=== PATIENT | female | born 1970 | race Caucasian/White ===

== ENCOUNTER → 2022-11-24 11:23 | Outpatient (BNVA) | payer OTHER, SELFPAY | PROVIDERS: PCP Nurse Practitioner Family; Visit Provider Nurse Practitioner Family | DX: E03.9 Hypothyroidism, unspecified | CPT/HCPCS: 80053; 80061; 84443; 85025 ==

== ENCOUNTER 2022-12-08 06:05 | Outpatient (CLI) | payer OTHER, SELFPAY ==
--- NOTE | 2022-12-08 07:30 | US_ITS ---
WS: [id number] THYROID ULTRASOUND HISTORY: E89.0 - Postprocedural hypothyroidism COMPARISON: None available. Right lobe: 1.9 cm x 1.9 cm x 4.5 cm (w x ap x l). Volume: 8.7 cm3. Normal sized gland. Normal vascularity throughout the gland. Nodule 1: 1.6 x 0.6 x 1.2 cm, mid gland towards the isthmus. Ovoid shape with a few echogenic foci. M ixed echogenicity, smooth margins and microcalcifications. Nodule 2: 0.8 x 0.7 x 1.2 cm, mid central gland. Round shape, mixed echogenicity, solid, smooth juanis ns and echogenic foci. Left lobe: Prior LEFT thyroidectomy. Isthmus: 0.2 cm. IMPRESSION: 1. Status post LEFT thyroidectomy. No recurrent mass at the thyroid bed and no abnormal cervical rafiq n lymph nodes. 2. RIGHT thyroid nodules x2. Each of these nodules designated TI-RADS 5. Consider follow-up ultrasoun d-guided fine-needle aspiration.
== END 2022-12-08 06:06 | disposition home or self-care (01) ==
PROVIDERS: PCP Nurse Practitioner Family; Visit Provider Nurse Practitioner Family
DX: E89.0 Postprocedural hypothyroidism (principal); E04.2 Nontoxic multinodular goiter
CPT/HCPCS: 76536

== ENCOUNTER 2023-01-11 08:08 | Outpatient (CLI) | payer OTHER, SELFPAY ==
--- NOTE | 2023-01-11 09:15 | US_ITS ---
WS: [id number] ULTRASOUND-GUIDED RIGHT THYROID NODULE FNA x 2 HISTORY: E04.1 - Nontoxic single thyroid nodule, 2 suspicious nodules in the RIGHT thyroid. Procedure, risks, and complications were explained to the patient. Timeout performed. Consent has bee n obtained. Masses within the RIGHT thyroid are identified. Initial mass for biopsy is in the mid RIGHT isthmus a nd the additional mass is in the inferior pole. The skin is cleansed with ChloraPrep and anesthetized with 1% buffered lidocaine. FNA performed with 25 gauge needles. certified hyperbaric technologist is present to fix slides. IMPRESSION: Uncomplicated FNA of a 2 RIGHT thyroid nodules. Final pathology results pending.
== END 2023-01-11 08:09 | disposition home or self-care (01) ==
LOC: RAD 08:09
PROVIDERS: PCP Nurse Practitioner Family; Visit Provider Nurse Practitioner Family
DX: E04.2 Nontoxic multinodular goiter (principal)
CPT/HCPCS: 10005; 88173

== ENCOUNTER → 2023-01-25 11:02 | Outpatient (BNVA) | payer OTHER, SELFPAY | PROVIDERS: PCP Nurse Practitioner Family; Visit Provider Nurse Practitioner Family | DX: R07.9 Chest pain, unspecified (principal) | CPT/HCPCS: 80053; 83735; 84443; 85025; 85379 ==

== ENCOUNTER → 2023-01-29 10:18 | Outpatient (BNVA) | payer OTHER, SELFPAY | PROVIDERS: PCP Nurse Practitioner Family; Visit Provider Nurse Practitioner Family | DX: M25.562 Pain in left knee (principal); M25.462 Effusion, left knee; M17.12 Unilateral primary osteoarthritis, left knee | CPT/HCPCS: 73562 ==

== ENCOUNTER → 2023-02-07 13:34 | Outpatient (BNVA) | payer OTHER, SELFPAY | PROVIDERS: PCP Nurse Practitioner Family; Referring Provider Nurse Practitioner Family; Visit Provider Nurse Practitioner | DX: M17.12 Unilateral primary osteoarthritis, left knee; M25.362 Other instability, left knee | CPT/HCPCS: 73560; 73565 ==

== ENCOUNTER 2023-02-07 15:31 | Outpatient (CLI) | payer OTHER, SELFPAY | END 2023-02-07 15:32 | disposition home or self-care (01) | LOC: SPT 15:32 | PROVIDERS: PCP Nurse Practitioner Family; Visit Provider Nurse Practitioner | DX: Z46.89 Encounter for fitting and adjustment of other specified devices (principal); M25.562 Pain in left knee | CPT/HCPCS: 97760; L1812 ==

== ENCOUNTER 2023-02-14 06:00 | Outpatient (RCR) | payer OTHER, SELFPAY | END 2023-02-22 23:59 | disposition home or self-care (01) | LOC: TPT 06:00 | PROVIDERS: PCP Nurse Practitioner Family; Visit Provider Nurse Practitioner | DX: M25.562 Pain in left knee (principal) | CPT/HCPCS: 97110; 97163 ==

== ENCOUNTER → 2023-02-21 14:18 | Outpatient (BNVA) | payer OTHER, SELFPAY | PROVIDERS: PCP Nurse Practitioner Family; Referring Provider Nurse Practitioner Family; Visit Provider Internal Medicine Cardiovascular Disease | DX: R07.9 Chest pain, unspecified (principal); R06.09 Other forms of dyspnea; R00.1 Bradycardia, unspecified | CPT/HCPCS: 93005 ==

== ENCOUNTER 2023-02-23 06:00 | Outpatient (RCR) | payer OTHER, SELFPAY | END 2023-03-25 23:59 | disposition home or self-care (01) | LOC: TPT 06:00 | PROVIDERS: PCP Nurse Practitioner Family; Visit Provider Nurse Practitioner | DX: M25.562 Pain in left knee (principal) | CPT/HCPCS: 97110; 97140; 97530 ==

== ENCOUNTER 2023-02-23 06:32 | Outpatient (CLI) | payer OTHER, SELFPAY ==
--- NOTE | 2023-02-23 07:00 | USCV_ITS ---
Carly Milan Age: 52 Gender: F : 1970 Exam Date: 02/23/2023 06:44 Ordering Phys: Kalen Khan MD ([email or web address]) Technologist: SIRIA Exam Location: [facility] [place] Indication: CHEST PAIN BP: 150 / 113 HR: 60 Rhythm: Sinus Technical Quality: Adequate MEASUREMENTS (Male / Female) Normal Values 2D ECHO LVOT Diameter 2.0 cm LV Ejection Fraction MOD 2C 73.4 % LV Ejection Fraction 2C AL 76.9 % LA Diameter 3.3 cm LA Width 4.3 cm LA Height 4.1 cm RA Width 3.3 cm RA Height 3.9 cm Aorta at Sinotubular Diameter 2.4 cm IVC Diameter 1.8 cm M-MODE Aortic Annulus Diameter 2.4 cm LA Ao Ratio MM 1.2 MV E Point Septal Separation 0.4 cm DOPPLER AV Peak Velocity 121.0 cm/s LVOT Peak Velocity 109.0 cm/s AV Area Cont Eq vti 2.8 cm squared AV Area Cont Eq pk 2.9 cm squared MV Peak Velocity 94.0 cm/s MV Area PHT 3.9 cm squared Mitral E to A Ratio 0.9 MV E' Velocity 46.0 cm/s Mitral E to MV E' Ratio 8.7 Mitral E to LV E' Lateral Ratio 7.5 Mitral E to LV E' Septal Ratio 10.2 TR Peak Velocity 125.7 cm/s TR Peak Gradient 6.3 mmHg TR Mean Velocity 106.2 cm/s TR Mean Gradient 4.7 mmHg TR Velocity Time Integral 37.2 cm TV Peak E Velocity 56.0 cm/s Right Atrial Pressure 3.0 mmHg Pulmonary Artery Systolic Pressu 9.3 mmHg PV Peak Velocity 132.0 cm/s RV Acceleration Time 0.2 s RV Ejection Time 0.3 s RV AcT/ET 0.5 FINDINGS Left Ventricle Normal left ventricular size and systolic function, EF 71 %. No regional wall motion abnormalities. Grade I/IV diastolic dysfunction (abnormal relaxation filling pattern), normal to mildly elevated filling pressures. Right Ventricle The right ventricle is normal in size and function. Right Atrium The right atrium is normal in size. Left Atrium The left atrium is normal in size. Mitral Valve Structurally normal mitral valve. Trace mitral valve regurgitation. Aortic Valve No gross abnormalities noted Tricuspid Valve No gross abnormalities noted Pulmonic Valve No gross abnormalities noted Pericardium Normal pericardium without effusion. Aorta Normal ascending aorta dimension. IVC Normal inferior vena cava. CONCLUSIONS Normal left ventricular size and systolic function, EF 71 %. No regional wall motion abnormalities. Grade I/IV diastolic dysfunction (abnormal relaxation filling pattern), normal to mildly elevated filling pressures. Structurally normal mitral valve. Trace mitral valve regurgitation. Normal cardiac chamber sizes. There is no pericardial effusion. There are no intracardiac masses. No similar previous studies are available for comparison Dr Kalen Khan MD [facility] (Electronically Signed) Final Date: 24 February 2023 12:02 S
== END 2023-02-23 06:33 | disposition home or self-care (01) ==
LOC: RAD 06:32
PROVIDERS: PCP Nurse Practitioner Family; Visit Provider Internal Medicine Cardiovascular Disease
DX: R06.09 Other forms of dyspnea (principal); R07.9 Chest pain, unspecified; I34.0 Nonrheumatic mitral (valve) insufficiency
CPT/HCPCS: 93306

== ENCOUNTER 2023-02-28 06:22 | Outpatient (CLI) | payer OTHER, SELFPAY ==
[2023-02-28 06:39] VITALS: BMI 45.1
--- NOTE | 2023-02-28 06:41 | NMCV_ITS ---
NM agnieszka perf SPECT r/s* [id number] Carly Milan Age: 52 Gender: F : 1970 Exam Date: 02/28/2023 07:22 Ordering Phys: Kalen Khan MD ([email or web address]) Technologist: ZAKIYA Lamas Exam Location: [facility] Indications: CORONARY ANGIOPLASTY STATUS STRESS TEST Please see separate stress test report in [facility] for full findings IMAGE PROTOCOL Rest/Stress 1 Lexiscan Day Radiopharmaceutical Dose (mCi) Administration Site Administered by Rest: Tc-99m 10.7 IV ZAKIYA Stoll Sestamibi Stress:Tc-99m 32.7 IV ZAKIYA Stoll Sestamibi Rest: 28-Feb-2023 60 Discovery 630 Stress: 28-Feb-2023 30 Discovery 630 0.4mg Lexiscan. Images obtained in supine and prone position. SPECT RESULTS Technical Quality: Excellent Raw Data Analysis: Normal Image Corrections: No attenuation or motion correction applied Summed Stress Score: 0 Summed Rest Score: 0 Summed Difference Score: 0 PERFUSION FINDINGS Uniform myocardial tracer uptake significant perfusion abnormalities . FUNCTIONAL RESULTS (calculated via Gated SPECT) Stress Image LV EF (%): 66 Stress EDV (mL):116 TID: 1.22 Stress ESV (mL):39 FUNCTIONAL FINDINGS: Segmental wall motion analysis revealing no gross wall motion abnormalities Elevated transient ischemic dilatation ratio 1.22 IMPRESSIONS 1. Myocardial perfusion imaging revealing uniform tracer uptake with no significant perfusion normalities. 2. Normal LV ejection fraction of 66%. 3. LV wall motion analysis revealing no gross wall motion abnormalities. 4. Normal LV volume The elevated transient limited ischemic dilatation ratio may suggest endocardial ischemia. However in the absence of any other abnormal objective findings, the positive predictive value of this finding is very limited. No similar previous studies are available for comparison Dr Kalen Khan MD [facility] (Electronically Signed) Final Date: 28 February 2023 18:11 S
--- NOTE | 2023-02-28 06:41 | ECG_ITS ---
[facility] Test Date: 2023-02-28 Pat Name: Carly Milan Department: Room: Gender: Female Health And Safety Advisor: Gustavonaomi Buckley : 1970 Requested By: Kalen Khan Order Number: [id number] Citlalli MD: Kalen Khan M.D. Interpretive Statements NAME OF STUDY: LEXISCAN SESTAMIBI STRESS TEST INDICATION: Chest Pain PROCEDURE: At the baseline, the EKG revealed sinus bradycardia. Poor R wave progression. Normal ST Ts.. The baseline heart was 54 bpm with a blood pressue of 148/104 mm of Hg Lexiscan was infused over a period of 20 seconds. A total of 0.4 milligrams of Lexiscan was infused. The stress phase was continued for a total of 5 minutes. Heart rate at the end of the stress phase was 65 bpm with a blood pressure 157/103 mm of Hg. The EKG at the peak infusion revealed no significant changes. Sestamibi was injected 20 seconds after the Lexiscan infusion. Heart rate at the end of the recovery phase was 61 bpm with a blood pressure of 166/107 mm of Hg. CONCLUSION: 1. No significant EKG changes with the LexiScan infusion 2. No LexiScan induced chest pain or cardiac arrhythmia 3. Normal blood pressure and heart rate response 4. Sestamibi/sestamibi perfusion scan pending; see separate report. Electronically Signed On 03-09-2023 10:37:33 WAREHOUSE EXAMINER by Kalen Khan M.D. [id number]
[2023-02-28] MEDS: regadenoson 0.4 Mg/5 ml Syringe IVP (07:59)
[2023-02-28 08:19] VITALS: BP 166/107; PULSE 63
== END 2023-02-28 06:23 | disposition home or self-care (01) ==
LOC: CDL 06:23
PROVIDERS: PCP Nurse Practitioner Family; Visit Provider Internal Medicine Cardiovascular Disease
DX: R07.9 Chest pain, unspecified (principal); Z98.61 Coronary angioplasty status
CPT/HCPCS: 36415; 78452; 93017; 96374; A9500; J2785

== ENCOUNTER 2023-03-26 06:00 | Outpatient (RCR) | payer OTHER, SELFPAY | END 2023-04-03 23:59 | disposition home or self-care (01) | LOC: TPT 06:00 | PROVIDERS: PCP Nurse Practitioner Family; Visit Provider Nurse Practitioner | DX: M25.562 Pain in left knee (principal) | CPT/HCPCS: 97110 ==

== ENCOUNTER 2023-04-13 22:19 | Emergency (ER) | payer OTHER, SELFPAY ==
--- NOTE | 2023-04-13 22:20 | XRR_ITS ---
PROCEDURE INFORMATION: Exam: XR Chest Exam date and time: 04/13/2023 10:24 PM Age: 52 years old Clinical indication: Chest pressure; Patient HX: C/O central chest pain; Additional info: Cp TECHNIQUE: Imaging protocol: Radiologic exam of the chest. Views: 1 view. COMPARISON: No relevant prior studies available. FINDINGS: Lungs: See Heart/Mediastinum finding. Pleural spaces: Unremarkable. No pleural effusion. No pneumothorax. Heart/Mediastinum: Cardiomegaly, negative for infiltrate. Bones/joints: Unremarkable. XR/XR chest 1V portable [id number] IMPRESSION: Cardiomegaly, negative for infiltrate.
--- NOTE | 2023-04-13 22:21 | ECG_ITS ---
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 Measurements Intervals [place] Rate: 60 P: 59 SC: 161 QRS: 58 QRSD: 92 T: 62 QT: 420 QTc: 421 Interpretive Statements SINUS RHYTHM Compared to ECG 02/21/2023 14:23:26 Sinus bradycardia no longer present Electronically Signed On 04-14-2023 6:05:48 PLATFORM BEATER by Arvind Tomas M.D. [id number]
[2023-04-13 22:24] VITALS: BP 207/125; PULSE 58; RESP 17; TEMP 36.6; O2SAT 96; BMI 44.6
--- NOTE | 2023-04-13 22:33 | W.ED.CHESTPA ---
HPI - Chest Pain General: Chief Complaint: Chest Pain Stated Complaint: cp Time Seen by Provider: 04/13/23 22:21 Source: patient Mode of arrival: ambulatory Limitations: no limitations History of Present Illness: 52-year-old female states she been having chest pains throughout the day. States it been a sharp pain in the center of her chest she is also been hypertensive as well. She denies any shortness of breath states pain seems to be worse with movement. Denies any nausea or diaphoresis. Associated symptoms: Deny abdominal pain, dyspnea, fever(s), nausea or vomiting Review of Systems Const: Denies: fever(s), chills, body aches or change in appetite ENMT: Denies: throat pain or dental pain Card: Reports: chest pain Resp: Denies: dyspnea GI: Denies: abdominal pain, nausea, vomiting or diarrhea : Denies: dysuria Musc: Denies: neck pain or back pain Skin/Breast: Denies: rash Neuro: Denies: headache(s) PFSH ED PFSH: Medical History Instability of left knee joint Primary osteoarthritis of left knee Nerve root disorder History of torn meniscus of left knee Tracheal nodule Surgical History History of H/O spinal fusion History of cholecystectomy H/O tubal ligation History of arthroplasty of left knee H/O partial thyroidectomy Family History Father Diabetes Hypertension Mother Osteoporosis Social History Smoking and tobacco/nicotine status: never used tobacco/nicotine Second hand smoke exposure: No Alcohol intake: current Alcohol intake frequency: holidays/special occasions only Alcohol type: other Substance/Drug Use: never Household members: spouse Marital status: service: No Current occupational status: unemployed and disabled Current gender identity: Female Special janeen needs: No Physical Exam Const: COMMON NORMALS: no acute distress, patient oriented x3 and healthy appearing HENMT: COMMON NORMALS: normocephalic and atraumatic HEAD & SCALP: normocephalic and atraumatic Eye: COMMON NORMALS: Equal, round and reactive pupils present and EOMs intact bilaterally PUPIL: Yes Equal, round and reactive pupils present Neck/C-Spine: COMMON NORMALS: full ROM and supple Chest: COMMONS NORMALS: normal inspection of the chest and normal palpation of entire chest wall Resp: COMMON NORMALS: normal respiratory effort, No retractions, No use of accessory muscles and clear to auscultation bilaterally AUSCULTATION: clear to auscultation bilaterally Cardio: COMMON NORMALS: regular rate, regular rhythm and No murmurs present (Cardio) RATE: regular rate RHYTHM: regular rhythm GI: COMMON NORMALS: Normal to inspection, nondistended, normoactive bowel sounds present, Soft to palpation, non-tender and no masses PALPATION: Yes Soft to palpation Extremity: COMMON NORMALS: normal to inspection and full ROM Neuro: COMMON NORMALS: patient oriented x3, moves all extremities and no focal motor deficits Psych: COMMON NORMALS: mental status grossly normal, Normal thought process present and cooperative THOUGHT PROCESS: Normal thought process present Skin: COMMON NORMALS: no rashes or lesions noted and no wounds GENERAL SKIN EXAM: no rashes or lesions noted Course Vital Signs: Vital signs: Vital Signs Temperature 97.8 F 04/13/23 22:24 Pulse Rate 73 04/13/23 23:49 Respiratory Rate 15 04/13/23 23:49 Blood Pressure 132/88 04/13/23 23:49 Pulse Oximetry 96 04/13/23 23:49 Oxygen Delivery Me thod Room Air 04/13/23 23:49 MDM - Chest Pain Medical Decision Making Patient presents here with chest pain her troponins here are negative she been pain-free here blood pressure is improved she is stable for discharge she is follow-up with PCP and return if worsening. Medical Records I reviewed the patient's medical records. Lab Data I reviewed the patient's lab results. 04/13/23 22:30 04/13/23 22:30 Radiology Impressions Chest X-Ray 04/13/23 22:20 IMPRESSION: Cardiomegaly, negative for infiltrate. Laboratory Results WBC 10.48 10^3/uL (3.29-11.43) 04/13/23 22:30 RBC 4.90 10^6/uL (3.85-5.65) 04/13/23 22:30 Hgb 14.50 g/dL (11.27-16.99) 04/13/23 22: Hct 43.9 % (36-47) 04/13/23 22: MCV 89.6 fl (85-98) 04/13/23 22: MCH 29.6 pg (27-33) 04/13/23 22: MCHC 33.0 g/dL (30-55) 04/13/23 22: RDW 12.8 % (12.1-15.1) 04/13/23: Plt Count 276 10^3/cmm (157-399) 04/13/23 22: MPV 10.1 fL (7.4-10.4) 04/13/23: Neut % (Auto) 47.1 % 04/13/23: Lymph % (Auto) 40.6 % 04/13/23: [place] % (Auto) 5.7 % 04/13/23: Eos % (Auto) 5.3 % 04/13/23: Baso % (Auto) 1.0 % 04/13/23: Neut # (Auto) 4.92 10^3/uL (1.8-7.7) 04/13/23 22: Lymph # (Auto) 4.3 10^3/uL (0.8-4.8) 04/13/23 22: [place] # (Auto) 0.6 10^3/uL (0.2-0.9) 04/13/23 22: Eos # (Auto) 0.6 10^3/uL (0.0-0.8) 04/13/23: Baso # (Auto) 0.1 10^3/uL (0.0-0.1) 04/13/23: Nucleated RBC % (auto) 0 % 04/13/23: Nucleated RBCs # 0.0 /100WBC 04/13/23: PT 12.20 SECONDS (12.1-14.9) 04/13/23 22: INR 0.88 (0.8-1.2) 04/13/23 22:30 Sodium 139 mmol/L (136-145) 04/13/23 22: Potassium 4.0 mmol/L (3.5-5.1) 04/13/23 22:30 Chloride 103 mmol/L (98-107) 04/13/23 22:30 Carbon Dioxide 26 mmol/L (22-29) 04/13/23 22:30 Anion Gap 14.0 (5-19) 04/13/23 22:30 BUN 17 mg/dL (6-20) 04/13/23 22:30 Creatinine 0.6 mg/dL (0.5-0.9) 04/13/23 22:30 GFR Calculation 104.2 mL/min (90-130) 04/13/23 22:30 Glucose 99 mg/dL (65-115) 04/13/23 22:30 Calculated Osmolality 290 mOsm/kg (285-295) 04/13/23 22:30 Calcium 10.2 mg/dL (8.5-10.5) 04/13/23 22:30 Total Bilirubin 0.2 mg/dL (0.15-1.2) 04/13/23 22:30 AST 19 U/L (0-32) 04/13/23 22:30 ALT 28 U/L (0-33) 04/13/23 22:30 Alkaline Phosphatase 84 U/L (35-105) 04/13/23 22:30 Troponin T Baseline < 6 ng/L (0-10) 04/13/23 22:30 Troponin T 120 Minute 6.00 ng/L (0-10) 04/14/23 00:35 Delta Troponin T 0.19694 ABS# (0-10) 04/14/23 00:35 Total Protein 7.1 g/dL (6.6-8.7) 04/13/23 22:30 Albumin 4.4 g/dL (3.5-5.2) 04/13/23 22:30 Globulin 2.7 g/dL (1.3-4.6) 04/13/23 22:30 Lipase 51 U/L (13-60) 04/13/23 22:30 All radiology interpretation(s) finalized by discharge EKG Data EKG 1: I personally reviewed and interpreted this EKG as follows: EKG interpretation date: 04/13/23 EKG interpretation time: 22:24 Interpretation: nsr hr [address] or t wave abnormalities qrs 92 qtc 421 EKG 2: I personally reviewed and interpreted this EKG as follows: EKG interpretation date: 04/14/23 EKG interpretation time: 00:27 Interpretation: nsr hr [address] or t wave abnormalities qrs 88 qtc 429 Discharge Plan Discharge Patient Disposition: Home Clinical Impression: Chest pain Qualifiers: Chest pain type: precordial pain Qualified Code(s): R07.2 - Precordial pain Condition: Stable Prescriptions: No Action (DME) hinged knee brace See Rx Instructions .Route .MEDSUPPLY Qty: 1 0RF Rx Instructions: As directed meloxicam 7.5 mg tablet 7.5 mg PO BID Qty: 60 2RF aspirin [Melanie Low Dose Aspirin] 81 mg tablet,delayed release (DR/EC) 81 mg PO DAILY carvedilol 6.25 mg tablet 6.25 mg PO BID 30 Days Qty: 60 5RF Rx Instructions: must administer with a meal/food losartan 50 mg tablet 100 mg PO DAILY Qty: 60 5RF Discharge Orders: Discharge ED (Routine); Ordered 04/14/23 Ordered By: Veronica Boudreaux Referrals: Maira Dolores Mason FNP [Primary Care Provider] - 1-3 days Discharge Diet: Advance as tolerated Discharge Activity: Resume usual activity Patient Instructions: Chest Pain (ED) Coding Level of Care Code ED Motor Builder Winder for Eva Valle
[2023-04-13 22:37] VITALS: BP 228/122; PULSE 58; RESP 18; O2SAT 97
[2023-04-13 22:44] LABS: Basophils # 0.1 10^3/uL (0.0-0.1); Eosinophils # 0.6 10^3/uL (0.0-0.8); Eosinophils % 5.3 %; Hematocrit 43.9 % (36-47); Lymphocytes # 4.3 10^3/uL (0.8-4.8); Lymphocytes % 40.6 %; Mean Corpuscular Hemoglobin 29.6 pg (27-33); Mean Corpuscular Volume 89.6 fl (85-98); Mean Platelet Volume 10.1 fL (7.4-10.4); Monocytes # 0.6 10^3/uL (0.2-0.9); Monocytes % 5.7 %; Neutrophils # 4.92 10^3/uL (1.8-7.7); Neutrophils % 47.1 %; Nucleated Red Blood Cells % 0 %; Platelet Count 276 10^3/cmm (157-399); Red Cell Distribution Width 12.8 % (12.1-15.1); White Blood Count 10.48 10^3/uL (3.29-11.43)
[2023-04-13] MEDS: ondansetron 2 mg/ML SDV 2 mL 4 MG IVP (22:45)
[2023-04-13 22:47] VITALS: RESP 15; O2SAT 95
[2023-04-13] MEDS: morphine 4 mg/mL SDV 1 mL IVP (22:47)
[2023-04-13] MEDS: hyDRALAzine 20 mg/mL INJ 1 mL 10 MG IVP (22:49)
[2023-04-13 22:50] LABS: INR 0.88 (0.8-1.2)
[2023-04-13 22:55] LABS: Alanine Aminotransferase 28 U/L (0-33); Albumin Level 4.4 g/dL (3.5-5.2); Alkaline Phosphatase 84 U/L (35-105); Aspartate Amino Transferase 19 U/L (0-32); Blood Urea Nitrogen 17 mg/dL (6-20); Calcium 10.2 mg/dL (8.5-10.5); Carbon Dioxide 26 mmol/L (22-29); Chloride 103 mmol/L (98-107); Globulin 2.7 g/dL (1.3-4.6); Glomerular Filtration Rate 104.2 mL/min (90-130); Glucose 99 mg/dL (65-115); Lipase 51 U/L (13-60); Osmolality Calculated 290 mOsm/kg (285-295); Sodium 139 mmol/L (136-145); Total Bilirubin 0.2 mg/dL (0.15-1.2); Total Protein 7.1 g/dL (6.6-8.7)
[2023-04-13 22:56] LABS: Troponin(5th) Baseline < 6 ng/L (0-10)
[2023-04-13 23:49] VITALS: BP 132/88; PULSE 73; RESP 15; O2SAT 96
--- NOTE | 2023-04-14 00:27 | ECG_ITS ---
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 Measurements Intervals [place] Rate: 63 P: 54 MO: 166 QRS: 51 QRSD: 88 T: 55 QT: 421 QTc: 433 Interpretive Statements SINUS RHYTHM Compared to ECG 04/13/2023 22:24:38 No significant changes Electronically Signed On 04-14-2023 6:07:46 WAREHOUSE PACKER by Arvind Tomas M.D. [id number]
[2023-04-14 01:31] LABS: Troponin 5 2HR Delta 0.00001 ABS# (0-10)
[2023-04-14 01:42] VITALS: BP 122/78; PULSE 67; RESP 16; O2SAT 95
== END 2023-04-14 01:50 | disposition home or self-care (01) ==
PROVIDERS: Emergency Provider Emergency Medicine; PCP Nurse Practitioner Family
DX: R07.2 Precordial pain (principal); Z79.82 Long term (current) use of aspirin
CPT/HCPCS: 36415; 71045; 80053; 83690; 84484; 85025; 85610; 93005; 96374; 96375; 99285; J0360; J2270; J2405

== ENCOUNTER → 2023-04-27 09:40 | Outpatient (BNVA) | payer OTHER, SELFPAY | PROVIDERS: PCP Nurse Practitioner Family; Visit Provider Nurse Practitioner Family | DX: I10 Essential (primary) hypertension (principal) | CPT/HCPCS: 80053; 80061; 84439; 84443; 85025 ==

== ENCOUNTER 2023-06-04 07:08 | Outpatient (CLI) | payer OTHER, SELFPAY ==
--- NOTE | 2023-06-04 07:20 | CT_ITS ---
WS: [id number] CT NECK WITH CONTRAST HISTORY: NONTOXIC MULTINODULAR GOITER, difficulty swallowing. TECHNIQUE: Contiguous 2 mm axial images are performed through the neck with intravenous contrast. Sag ittal and coronal reformats are also submitted. All CT scans at [facility] use at least one o f these dose optimization techniques: automated exposure control; mA and/or kV adjustment per patient size (includes targeted exams where dose is matched to clinical indication); or iterative reconstruc tion. CONTRAST: CONTRAST: Omnipaque 350; 100 mL IV. DLP: 299.48 mGy.cm COMPARISON: None available. Patient swallowed during the neck CT causing significant motion artifact and distortion of the oropha rynx. Repeat imaging was performed through a small section of the oropharynx. There is mildly enlarged and slightly asymmetric appearance to the [place] tonsils. The LEFT Palatin e tonsil is more prominent than the RIGHT and there is mild narrowing of the oropharynx at this level . There is no asymmetric enhancement. No discrete mass is identified. There are several tonsilloliths bilaterally. The epiglottis appears normal. The parapharyngeal fat and the parapharyngeal mucosa appear appropriate. Small bilateral lymph nodes. Lymph nodes along the LEFT cervical chain, level 2 are slightly greater than the RIGHT cervical lymp h nodes. The largest lymph node is 11 mm in short axis diameter. Small axillary lymph nodes are also identified. Status post LEFT thyroidectomy. Small subcentimeter nodules in the RIGHT thyroid gland. No osseous abnormalities. Visualized portions of the skull base demonstrate no abnormalities. Orbits and globes are within norm al limits. No soft tissue masses. Visualized paranasal sinuses and mastoid air cells are normal. Lung apices are clear. IMPRESSION: 1. Mildly enlarged [place] tonsils with tonsilloliths. The LEFT [place] tonsil is slightly greater in size than the RIGHT. No focal mass or abnormal enhancement within either tonsillar bed. There is narrowing of the oropharynx. [place] tonsils can be evaluated by ENT. 2. Mildly enlarged LEFT level 2 lymph node measuring 11 mm. 3. Status post LEFT thyroidectomy.
[2023-06-04] MEDS: iohexol 350 mg/mL 500 mL Btl (per mL) IV (07:35)
== END 2023-06-04 07:09 | disposition home or self-care (01) ==
LOC: RAD 07:08
PROVIDERS: PCP Nurse Practitioner Family; Visit Provider Specialist
DX: E04.2 Nontoxic multinodular goiter (principal)
CPT/HCPCS: 70491; Q9967

== ENCOUNTER 2023-06-04 07:55 | Outpatient (CLI) | payer OTHER, SELFPAY | END 2023-06-04 07:56 | disposition home or self-care (01) | LOC: SLEEP 06-05 07:49 | PROVIDERS: PCP Nurse Practitioner Family; Visit Provider Otolaryngology | DX: G47.33 Obstructive sleep apnea (adult) (pediatric) (principal) | CPT/HCPCS: G0399 ==

== ENCOUNTER → 2023-08-03 08:53 | Outpatient (BNVA) | payer OTHER, SELFPAY | PROVIDERS: PCP Nurse Practitioner Family; Visit Provider Nurse Practitioner Family | DX: M25.561 Pain in right knee (principal); M17.11 Unilateral primary osteoarthritis, right knee; E78.5 Hyperlipidemia, unspecified; E03.9 Hypothyroidism, unspecified; E89.0 Postprocedural hypothyroidism; E04.2 Nontoxic multinodular goiter | CPT/HCPCS: 73562; 80053; 80061; 84439; 84443 ==

== ENCOUNTER → 2023-09-26 08:43 | Outpatient (BNVA) | payer OTHER, SELFPAY | PROVIDERS: PCP Nurse Practitioner Family; Visit Provider Nurse Practitioner | DX: M17.12 Unilateral primary osteoarthritis, left knee; M25.362 Other instability, left knee | CPT/HCPCS: 73560; 73565 ==

== ENCOUNTER → 2023-11-19 11:54 | Outpatient (BNVA) | payer OTHER, SELFPAY | PROVIDERS: PCP Nurse Practitioner Family; Visit Provider Nurse Practitioner Family | DX: I10 Essential (primary) hypertension (principal) | CPT/HCPCS: 36415; 80048 ==

== ENCOUNTER 2024-01-03 06:23 | Outpatient (CLI) | payer OTHER, SELFPAY ==
[2024-01-03 06:26] VITALS: BP 113/64; PULSE 74; BMI 45.7
--- NOTE | 2024-01-03 06:41 | ECG_ITS ---
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 Interpretive Statements LEXISCAN SESTAMIBI STRESS TEST Procedure: At the baseline, the blood pressure was 148/72 mmHg with a heart rate of 54 bpm. The electrocardiogram showed normal sinus rhythm, normal axis with normal ST and T's. The Lexiscan was infused over a period of 20 seconds. A total of 0.4 mg of Lexiscan was infused. The stress phase was continued for a total of 5 minutes. Heart rate was at the end of stress phase was 72 bpm and a blood pressure of 98/67 mmHg. The EKG at the peak infusion revealed normal sinus rhythm with no significant ST-T wave changes. Sestamibi was injected 20 seconds after the Lexiscan infusion. Blood pressure at the end of recovery phase was 113/64 mmHg with a heart rate of 73bpm. Conclusion: 1. Normal EKG response to Lexiscan infusion 2. No Lexiscan induced chest pain or cardiac arrhythmia. 3. Normal blood pressure and heart rate response. 4. Sestamibi/sestamibi perfusion scan pending; see separate report. Electronically Signed On 01-04-2024 19:41:55 CDT by Arvind Tomas M.D. [id number]
--- NOTE | 2024-01-03 06:41 | NMCV_ITS ---
NM agnieszka perf SPECT r/s* [id number] Carly Milan Age: 53 Gender: F : 1970 Exam Date: 01/03/2024 06:41 Ordering Phys: Trinity Joya Technologist: ZAKIYA Kathleen Exam Location: [facility] Indications: HTN/ANGINA STRESS TEST Please see separate stress test report in [facility] for full findings IMAGE PROTOCOL Rest/Stress 1 Lexiscan Day Radiopharmaceutical Dose (mCi) Administration Site Administered by Rest: Tc-99m 10.8 IV Erinn Rosenthal, RESILIENT TILE INSTALLER Sestamibi Stress:Tc-99m 32.7 IV Erinn Cortese, RESILIENT TILE INSTALLER Sestamibi Rest: 03-Jan-2024 60 Discovery 630 Stress: 03-Jan-2024 30 Discovery 630 0.4mg Lexiscan. Images obtained in supine and prone position. SPECT RESULTS Technical Quality: Good Raw Data Analysis: Normal Image Corrections: No attenuation or motion correction applied Summed Stress Score: 0 Summed Rest Score: 0 Summed Difference Score: 0 PERFUSION FINDINGS SPECT images demonstrate homogeneous tracer distribution throughout the myocardium. FUNCTIONAL RESULTS (calculated via Gated SPECT) Stress Image LV EF (%): 74 Stress EDV (mL):116 TID: 1.02 Stress ESV (mL):30 FUNCTIONAL FINDINGS: There is normal left ventricular systolic function. IMPRESSIONS Myocardial perfusion imaging is normal. Ana Sinclair MD (Electronically Signed) Final Date: 03 January 2024 10:07 S
[2024-01-03] MEDS: regadenoson 0.4 Mg/5 ml Syringe IVP (08:09)
== END 2024-01-03 06:24 | disposition home or self-care (01) ==
PROVIDERS: PCP Nurse Practitioner Family; Visit Provider Nurse Practitioner Family
DX: I10 Essential (primary) hypertension (principal); R07.2 Precordial pain
CPT/HCPCS: 36415; 78452; 93017; 96374; A9500; J2785

== ENCOUNTER 2024-01-29 10:45 | Day surgery (SDC) | payer OTHER, SELFPAY ==
[2024-01-29] MEDS: sodium chloride 0.9% 1,000 ML 30 ML IV (11:37)
[2024-01-29 11:39] VITALS: BP 139/87; PULSE 63; RESP 20; TEMP 36.2; O2SAT 95
--- NOTE | 2024-01-29 12:32 | ANES.PREANE2 ---
Pre-Anesthetic Assessment Height/Weight: Height 1.6 m Weight 117.027 kg Temp Pulse Resp BP Pulse Ox O2 Del Method 97.2 F L 63 20 H 139/87 95 Room Air 01/29/24 11:39 01/29/24 11:39 01/29/24 11:39 01/29/24 11:39 01/29/24 11:39 01/29/24 11:39 Operation Date: 01/29/24 12:30 Proposed Procedures p EGD- 99979,K21.9(Not Applicable) - El Tate MD Familial anesthetic complications: None Was Beta Adele taken within 24 hours: Yes Was Clonidine taken within 24 hours: N/A Last intake: Intake Last Liquid Date 01/18/24 Last Liquid Time 09:00 Last Solid Date 01/28/24 Last Solid Time 18:00 Social No alcohol and No tobacco Exam alert, oriented x 3, clear to auscultation bilaterally and regular rate & rhythm Airway Mallampati: Class IV Dentition: full CV/HEM Stable Angina (now thought to be gastric in origin after negative stress test) and Hypertension Metabolic Hyperlipidemia, Morbid Obesity and Thyroid Disease Anesthetic Plan ASA status: 3 Anesthesia: MAC Risk of > 500 ml blood loss (7ml/kg in children): No Medications/Allergies Home Medications Medication Instructions Recorded Confirmed Last Taken Type hinged knee brace #1 ea 02/07/23 01/24/24 Unknown Rx aspirin 81 mg tablet,delayed 81 mg PO DAILY 02/21/23 01/28/24 01/28/24 History release (Melanie Low Dose Aspirin) pantoprazole 40 mg tablet,delayed 40 mg PO BID #180 tabs 09/14/23 01/28/24 01/28/24 Rx release (Protonix) celecoxib 100 mg capsule 100 mg PO BID PRN pain #60 caps 11/29/23 01/28/24 01/28/24 Rx valsartan 160 mg tablet 160 mg PO DAILY #30 tabs 11/29/23 01/28/24 01/28/24 Rx albuterol sulfate 90 mcg/actuation 2 puff inhalation Q6H PRN 12/18/23 01/28/24 Unknown Rx aerosol inhaler (Ventolin HFA) shortness of breath or wheezing #8.5 grams semaglutide (weight loss) 0.25 0.25 mg (0.5 mL) SUBCUT Q7D #2 mL 12/18/23 01/28/24 01/22/24 Rx mg/0.5 mL subcutaneous pen injector (Fernando) chlorthalidone 25 mg tablet 25 mg PO DAILY #90 tabs 12/20/23 01/28/24 01/28/24 Rx carvedilol 6.25 mg tablet 6.25 mg PO BID 30 days #60 tabs 01/15/24 01/29/24 01/29/24 Rx sucralfate 1 gram tablet (Carafate) 1 g PO TID #30 tabs 01/15/24 01/28/24 01/28/24 Rx amlodipine 10 mg tablet 10 mg PO DAILY 01/28/24 01/28/24 01/27/24 History atorvastatin 10 mg tablet 10 mg PO DAILY 01/28/24 01/28/24 01/28/24 History diclofenac sodium 1 % topical gel 4 g topical QID PRN Pain 01/28/24 01/28/24 Unknown History (Voltaren Arthritis Pain) Allergies Allergy/AdvReac Type Severity Reaction Status Date / Time azithromycin Allergy Intermediate hives Verified 01/24/24 08:54 Sulfa (Sulfonamide Allergy Intermediate hives Verified 01/24/24 08:54 Antibiotics) Penicillins Allergy ALGY-Hives Verified 01/24/24 08:54 Current Medications Generic Name Dose Route Start Last Admin Trade Name Freq PRN Reason Stop Dose Admin Sodium Chloride 1,000 mls @ 30 mls/hr 01/29/24 11:15 01/29/24 11:37 Sodium Chloride 0.9% IV 01/30/24 11:14 30 mls/hr .Q24H KEYONA Administration PFSH Anesthesia Medical History Instability of left knee joint Primary osteoarthritis of left knee Nerve root disorder History of torn meniscus of left knee Tracheal nodule Surgical History History of H/O spinal fusion History of cholecystectomy H/O tubal ligation History of arthroplasty of left knee H/O partial thyroidectomy Family History Father Diabetes Hypertension Mother Osteoporosis Social History (Updated 01/24/24 @ 09:00 by HUSSAIN Morel Smoking and tobacco/nicotine status: never used tobacco/nicotine Second hand smoke exposure: No Alcohol intake: current Alcohol intake frequency: holidays/special occasions only Alcohol type: other Substance/Drug Use: never Household members: spouse Marital status: service: No Current occupational status: unemployed and disabled Current gender identity: Female Special janeen needs: No Data Anesthesia Cardiac Studies: Echocardiogram 02/23/23 Sestamibi Stress Test (Cardiology) 01/03/24
--- NOTE | 2024-01-29 13:13 | W.PM.OPSUD ---
Surgery/Procedure H&P Update DATE OF PROCEDURE: January 29, 2024 DATE H&P PERFORMED: 01/24/24 H&P UPDATE INFORMATION: I have reviewed H&P completed within last 30 days, I have examined patient prior to procedure and No changes to prior documentation PLANNED PROCEDURE: Operation Date: 01/29/24 12:30 Proposed Procedures p EGD- 61508,K21.9(Not Applicable) - El Tate MD
[2024-01-29 13:25] VITALS: BP 128/70; PULSE 67; RESP 20; TEMP 36.1; O2SAT 95
[2024-01-29 13:37] VITALS: BP 130/79; PULSE 64; RESP 18; O2SAT 95
--- NOTE | 2024-01-29 14:00 | ANE.PACU2 ---
Inpatient post-anesthesia follow up: Airway intact: Yes Vital signs: Temperature 97 F Pulse Rate 64 Respiratory Rate 18 Blood Pressure 130/79 Pulse Oximetry 95 Oxygen Delivery Me thod Room Air Oxygen Flow Rate Fraction of Inspir ed Oxygen Hydration adequate: Yes Nausea and vomiting: No Pain level: 1 Mental status: Baseline
== END 2024-01-29 14:00 | disposition home or self-care (01) ==
PROVIDERS: PCP Nurse Practitioner Family; Visit Provider Student in an Organized Health Care Education/Training Program
PROC: 0DJ08ZZ Inspection of Upper Intestinal Tract, Via Natural or Artificial Opening Endoscopic (ICD-10-PCS; CPT 43235; principal; 2024-01-29 12:30)
DX: K21.9 Gastro-esophageal reflux disease without esophagitis (principal); K29.70 Gastritis, unspecified, without bleeding; I10 Essential (primary) hypertension; E78.5 Hyperlipidemia, unspecified; E66.01 Morbid (severe) obesity due to excess calories; Z68.42 Body mass index [BMI] 45.0-49.9, adult; Z79.82 Long term (current) use of aspirin
CPT/HCPCS: 43239; 88305; J7030

== ENCOUNTER → 2024-05-01 11:01 | Outpatient (BNVA) | payer OTHER, SELFPAY | PROVIDERS: Family Provider Nurse Practitioner Family; PCP Nurse Practitioner Family; Visit Provider Nurse Practitioner Family | DX: E03.9 Hypothyroidism, unspecified (principal); E78.5 Hyperlipidemia, unspecified; I10 Essential (primary) hypertension; K21.9 Gastro-esophageal reflux disease without esophagitis; M17.12 Unilateral primary osteoarthritis, left knee; E66.01 Morbid (severe) obesity due to excess calories | CPT/HCPCS: 80053; 80061; 82607; 83036; 83735; 84443; 85025 ==